=== PATIENT | male | born 1950 | race Caucasian/White ===

== ENCOUNTER 2017-11-25 10:04 | Inpatient (IN) | payer MEDICARE ==
[2017-11-25] MEDS: SODIUM CHLORIDE 0.9% 1000ML 1,000 ML IV SCH ×6 (10:40→15:35)
[2017-11-25 10:41] LABS: HEMATOCRIT 28 % (39-53); HEMOGLOBIN 9.4 gm/dl (13.5-17.7); MEAN CORPUSCULAR HEMOGLOBIN 32.1 pg (27.0-32.0); MEAN CORPUSCULAR HGB CONC 34.2 gm/dl (32.0-36.0); MEAN CORPUSCULAR VOLUME 94 fL (80-100)
[2017-11-25 10:45] LABS: ABG PH 7.53 (7.35-7.45)
[2017-11-25 10:47] LABS: BILIRUBIN,TOTAL 0.5 mg/dl (0.2-1.0); CALCIUM 7.3 mg/dl (8.5-10.1); CARBON DIOXIDE 25.2 mEq/L (21-32); CREATININE 1.02 mg/dl (0.80-1.30); POTASSIUM 3.7 mMol/L (3.5-5.1); TOTAL PROTEIN 4.6 gm/dl (6.4-8.2); TROP I 0.027 ng/ml (0.000-0.056)
[2017-11-25 11:05] LABS: BAND NEUTROPHILS % (MANUAL) 9 %; BASOPHILS % (MANUAL) 0 % (0-3); EOSINOPHILS % (MANUAL) 0 % (0-9); LYMPHOCYTES % (MANUAL) 12 % (10-50); MONOCYTES % (MANUAL) 8 % (0-12); NEUTROPHILS % (MANUAL) 71 % (37-80)
[2017-11-25 11:06] LABS: POIKILOCYTOSIS MOD AMT; SPHEROCYTES PRESENT; TARGET CELLS PRESENT
[2017-11-25] MEDS ORDERED: ALBUTEROL NEB SOL 2.5MG/3ML 1 VIAL SOL NEB PRN (16:23)
[2017-11-25] MEDS ORDERED: SODIUM CHLORIDE 0.9% 250 ML 250 ML IV ONE (17:29)
[2017-11-25] MEDS ORDERED: LEVOFLOXACIN 25 MG/ML SOL IV ONE (17:29)
[2017-11-25] MEDS: LEVOFLOXACIN 25 MG/ML 750 MG in SODIUM CHLORIDE 0.9% 250 ML 150 ML IV SCH (17:38)
[2017-11-25] MEDS: SODIUM CHLORIDE 0.9% FLUSH 10 ML SOL IV SCH (17:41)
[2017-11-25] MEDS: ALBUTEROL/IPRATROPIUM 1 VIAL SOL INH SCH ×2 (18:18→23:05)
[2017-11-25] MEDS ORDERED: METHOCARBAMOL 500 MG TAB PO PRN (19:23)
[2017-11-26] MEDS: SODIUM CHLORIDE 0.9% FLUSH 10 ML SOL IV SCH ×4 (03:12→22:04)
[2017-11-26] MEDS: ALBUTEROL/IPRATROPIUM 1 VIAL SOL INH SCH ×4 (04:40→22:04)
[2017-11-26] MEDS ORDERED: PANTOPRAZOLE SODIUM 40 MG ECT PO ONE (08:03)
[2017-11-26 08:11] LABS: BASOPHILS % (AUTO) 1 % (0-3); CALCIUM 6.9 mg/dl (8.5-10.1); CARBON DIOXIDE 28.8 mEq/L (21-32); CREATININE 0.69 mg/dl (0.80-1.30); EOSINOPHILS % (AUTO) 0 % (0-9); HEMATOCRIT 24 % (39-53); HEMOGLOBIN 8.1 gm/dl (13.5-17.7); LYMPHOCYTES % (AUTO) 17.3 % (10-50); MEAN CORPUSCULAR HEMOGLOBIN 32.3 pg (27.0-32.0); MEAN CORPUSCULAR HGB CONC 34.4 gm/dl (32.0-36.0); MEAN CORPUSCULAR VOLUME 94 fL (80-100); MONOCYTES % (AUTO) 4.3 % (0-12); NEUTROPHILS % (AUTO) 77.6 % (37-80)
[2017-11-26 08:19] LABS: POTASSIUM 2.8 mMol/L (3.5-5.1)
[2017-11-26 08:53] LABS: APPEARANCE,URINE Clear; BILIRUBIN,URINE 1+ (NEGATIVE); COLOR,URINE Dark yellow; GLUCOSE, URINE (UA) NEGATIVE (NEGATIVE); KETONES,URINE NEGATIVE (NEGATIVE); LEUKOCYTE ESTERASE ,URINE NEGATIVE (NEGATIVE); NITRATE,URINE NEGATIVE (NEGATIVE); OCCULT BLOOD,URINE NEGATIVE (NEG-TRACE); PH,URINE 5.5
[2017-11-26] MEDS: THIAMINE 100 MG TAB PO SCH (08:54)
[2017-11-26] MEDS: PANTOPRAZOLE SODIUM 40 MG ECT PO SCH (08:55)
[2017-11-26] MEDS ORDERED: OMEPRAZOLE 40 MG ECC PO SCH (09:00)
[2017-11-26] MEDS ORDERED: POTASSIUM CHLORIDE 10 MEQ TER PO SCH (09:15)
[2017-11-26 09:19] LABS: EPITHELIAL CELLS 0-2 (SQUAMOUS); ICTOTEST,URINE NEGATIVE (NEGATIVE); RBC,URINE 0-2 (0-3AV/HPF); WBC,URINE 0-2 (0-5AV/HPF)
[2017-11-26 09:20] LABS: AMPHETAMINES NEGATIVE (NEGATIVE); BACTERIA TRACE (< 1+); BARBITUATES NEGATIVE (NEGATIVE); BENZODIAZEPINES NEGATIVE (NEGATIVE); CANNABINOL(THC) NEGATIVE (NEGATIVE); COCAINE(COC) NEGATIVE (NEGATIVE); METHADONE NEGATIVE (NEGATIVE); METHAMPHETAMINES NEGATIVE (NEGATIVE); OPIATES(OP13) NEGATIVE (NEGATIVE); OXYCODONE(OXY) NEGATIVE (NEGATIVE); PROPOXYPHENE(PPX) NEGATIVE (NEGATIVE); TRICYCLIC ANTIDEPRESSANTS NEGATIVE (NEGATIVE)
[2017-11-26] MEDS: POTASSIUM CHLORIDE 10 MEQ TER PO SCH ×3 (10:19→16:06)
[2017-11-26 11:47] LABS: CRYSTALS 5-10 AND CLUMPS (0-3 AVE/HPF)
[2017-11-26] MEDS: LEVOFLOXACIN 25 MG/ML 750 MG in SODIUM CHLORIDE 0.9% 250 ML 150 ML IV SCH (16:29)
[2017-11-27] MEDS: SODIUM CHLORIDE 0.9% FLUSH 10 ML SOL IV SCH ×2 (00:54→09:14)
[2017-11-27] MEDS: ALBUTEROL/IPRATROPIUM 1 VIAL SOL INH SCH ×2 (05:13→12:34)
[2017-11-27 07:30] LABS: ALBUMIN 0.8 gm/dl (3.4-5.0); BILIRUBIN,TOTAL 0.4 mg/dl (0.2-1.0); CALCIUM 7.1 mg/dl (8.5-10.1); CREATININE 0.7 mg/dl (0.80-1.30); TOTAL PROTEIN 4.1 gm/dl (6.4-8.2)
[2017-11-27 07:37] LABS: CARBON DIOXIDE 26.8 mEq/L (21-32)
[2017-11-27 07:57] VITALS: RESP 24
[2017-11-27 08:11] VITALS: BP 88/57; PULSE 71; TEMP 98.2
[2017-11-27] MEDS ORDERED: FERROUS GLUCONATE 324 MG TABLET PO SCH (09:00)
[2017-11-27] MEDS ORDERED: CALCIUM CARBONATE 500 MG TAB PO SCH (09:00)
[2017-11-27] MEDS: THIAMINE 100 MG TAB PO SCH (09:14)
[2017-11-27] MEDS: PANTOPRAZOLE SODIUM 40 MG ECT PO SCH (09:14)
[2017-11-27 09:53] LABS: BASOPHILS % (AUTO) 0 % (0-3); EOSINOPHILS % (AUTO) 1 % (0-9); HEMATOCRIT 26 % (39-53); HEMOGLOBIN 8.4 gm/dl (13.5-17.7); LYMPHOCYTES % (AUTO) 13.8 % (10-50); MEAN CORPUSCULAR HEMOGLOBIN 31.7 pg (27.0-32.0); MEAN CORPUSCULAR HGB CONC 32.5 gm/dl (32.0-36.0); MEAN CORPUSCULAR VOLUME 98 fL (80-100); NEUTROPHILS % (AUTO) 75.3 % (37-80)
[2017-11-27 15:50] VITALS: O2SAT 100
== END 2017-11-27 15:40 | DRG 194 ==
LOC: ED 10:04 → ACUTE CARE 15:11 → UNDOADMIN 15:17
PROVIDERS: ADMIT Family Medicine; ATTEND Family Medicine
DX: J18.9 Pneumonia, unspecified organism (principal); R18.8 Other ascites; E46 Unspecified protein-calorie malnutrition; E88.09 Other disorders of plasma-protein metabolism, not elsewhere classified; D64.9 Anemia, unspecified; Z72.0 Tobacco use; E87.6 Hypokalemia; E83.51 Hypocalcemia; K74.60 Unspecified cirrhosis of liver; R53.1 Weakness
CPT/HCPCS: 36415; 36600; 71045; 71260; 80048; 80053; 80305; 81001; 82140; 82803; 84132; 84484; 85007; 85025; 85027; 87040; 93005; 93012; 94150; 94640; 94664; 96365; 99232; 99283; J1956; J7613; Q9967; A6232; A9270-GY